=== PATIENT | male | born 1950 | race Caucasian/White ===

== ENCOUNTER 2025-02-06 10:11 | Outpatient (AMB) | payer MEDICARE, OTHER, SELFPAY ==
--- NOTE | 2025-02-06 10:20 | A.OFFVIS_ITS ---
Intake Visit Reasons: 3 month f/u Accompanied by: and daughter Allergies No Known Allergies Allergy (Verified 02/06/25 10:25) Medication List - Last Reconciled 02/06/25 by Genie Cruz CNP atorvastatin 20 mg PO BEDTIME carbidopa-levodopa 25-100 mg 1 tab PO QID 90 days donepezil 5 mg PO BEDTIME 90 days rasagiline 1 mg PO QAM 90 days triamterene-hydrochlorothiazid 37.5-25 mg 1 tab PO DAILY HPI Comments Details: He was here with his and daughter (Luana). Tremor was not bad, may be slightly more and worse with stress or anxiety, or when tired. No functional impairment. No difficulty eating, drinking, or swallowing. He was drooling more and was referred to speech and swallow therapy at [facility]. Sleep was okay, no movements in sleep. Walking 2-3 miles/day. His daughter noted that he was leaning more to the side. He has a few minor falls without injury. He felt he was moving a little slower. His Parkinsons exercise program finished and they were looking for program closer to home. Some difficulty getting up from chair, no trouble turning in bed. He feels his memory has gotten better with donepezil. No medication side effects. In the spring 2024, his daughter noted that he was more forgetful and confused at times, especially when tired. He has trouble following conversations, misplaces things, and has trouble remembering if he paid bills. Around 11/2020, he noted some intermittent tremor in his legs, left more than right. He also has noted that sometimes when he is standing or walking, he leans a little bit to the left side. Intermittently he gets a little tremor in his hand. His handwriting has become smaller and shaky. He had trouble getting out of a low chair or a low car. There's been no speech or swallowing problems. Occasionally he gets slight drooling. He is developed worsening of his stooped posture. For the last few years, he's been having shouting and kicking during his sleep suggestive of REM sleep behavior disorder about twice a week. [facility] Medical History (Updated 02/06/25 @ 10:24 by Genie Cruz CNP) Parkinson's disease with dyskinesia, without mention of fluctuations MCI (mild cognitive impairment) Hypertension Parkinson disease Review of Systems Const Denies chills, Denies daytime sleepiness, Denies difficulty sleeping, Denies fatigue, Denies fever(s), Denies frequent falls, Denies headache(s), Denies increased appetite, Denies poor appetite, Denies snoring, Denies weakness, Denies weight gain and Denies weight loss Eyes Denies loss of vision ENT Denies vertigo, Denies dizziness, Denies headache(s) and Denies neck pain Card Denies chest pain at rest, Denies chest pain with activity, Denies syncope, Denies leg edema, Denies palpitations, Denies dyspnea and Denies dyspnea on exertion Resp Denies cough, Denies dyspnea, Denies dyspnea on exertion and Denies snoring GI Denies abdominal pain, Denies constipation, Denies heartburn, Denies diarrhea and Denies nausea Denies urinary frequency, Denies urinary incontinence and Denies urinary urgency Musc Reports abnormal gait (balance difficulty), Denies back pain, Denies myalgias, Denies arthralgias, Denies neck pain, Denies numbness and Denies tingling Neuro Reports abnormal gait (balance difficulty), Denies vertigo, Denies dizziness, Denies syncope, Denies frequent falls, Denies headache(s), Denies lack of coordination, Denies loss of vision, Reports memory loss, Denies numbness, Denies Other visual disturbances, Denies restless legs, Denies seizure-like activity, Denies tingling, Denies paresthesias, Reports tremor(s) and Denies weakness Psych Denies anxiety, Denies depression, Denies auditory hallucinations, Reports memory loss and Denies visual hallucinations Endo Denies fatigue and Denies palpitations Physical Exam Const Other: General Appearance:? normal, in no acute distress. Heart:? S1, S2 normal, no murmurs. Lungs:? clear anteriorly and posteriorly. Musculoskeletal:? normal. Extremities:? no edema. Psych:? alert, as below. Neuro Other: Abnormal Neurological Findings:?Forward stooped posture and walks with no arm swing. He has reduced facial expression and blinking frequency. He has intermittent resting tremors of his feet, L > R, sometimes extending into the thighs had to 6-8 Hz frequency. He gets a slight intermittent tremor in his hands, left greater than right. Rapid alternating movements are somewhat diminished in amplitude and slower. Mild to mod cogwheel rigidity in his hands. Bradykinesia. MMSE 28/30.?? Mental Status: alert, as below. Cranial Nerves: Pupils are equal, round, and reactive to light. External ocular muscles are intact. Visual mcmillan are full, no ptosis. Face is symmetrical, no facial weakness or droop. Facial sensations are normal. Tongue protrudes in midline. Palate elevates symmetrically. Shoulder shrugging is normal Motor Examination: Normal muscle tone, bulk and strength. No atrophy or fascicul ations. No drift of the extended upper extremities. DTR 2+. Plantars are flexor. Sensory Exam: Normal light touch, temperature, pinprick, vibration, and joint- position sensations. Rhomberg sign is absent. Coordination: Rapid alternating movements as above. Gait Exam: As above. Cerebellar Signs: [id number] is okay. Extrapyramidal System: As above. Speech: Normal. MMSE Level of Consciousness: Alert. Orientation: Knows correct year, month, date, day and season. Knows correct city, county and state. Knows correct location and floor. Registration: Able to register 3 objects. Attention: Serial 7's performed accurately to 65. Recall: Able to recall 1 out of 3 objects. Language: Normal spontaneous speech, fluency, repetition, naming, comprehension, reading, and writing. Total Score: 28/30. Assessment & Plan Assessment & Plan (1) Parkinson disease: Code(s): G20.A1 - Parkinson's disease without dyskinesia, without mention of fluctuations Category: Medical Qualifiers: Dyskinesia presence: without dyskinesia Fluctuating manifestations: without fluctuating manifestations Qualified Code(s): G20.A1 - Parkinson's disease without dyskinesia, without mention of fluctuations Plan: Increase carbidopa-levodopa 25-100mg 1 tablet five times a day. Continue rasagiline mesylate 1mg 1 tablet daily. (2) MCI (mild cognitive impairment): Code(s): G31.84 - Mild cognitive impairment of uncertain or unknown etiology Category: Medical Plan: Continue donepezil 5mg 1 tablet at bedtime. Stay physically and socially active. Medications: New carbidopa-levodopa 25-100 mg (Sinemet) 1 tab PO .five times a day 450 tabs 1RF 90 days Discontinued carbidopa-levodopa 25-100 mg Discontinued Reason: Doctor's Order 1 tab PO QID 90 days 360 tabs 1RF Coding Level of Care Code Est Pt Level 4 (47120) Diagnoses Parkinson's disease without dyskinesia or fluctuating manifestations G20.A1 Dyskinesia presence: without dyskinesia Fluctuating manifestations: without fluctuating manifestations MCI (mild cognitive impairment) G31.84
--- OUTSIDE RECORDS SUMMARY | 2025-02-06 10:47 | XMS_ITS | Clinical Summary ---
[facility] Organization [facility] Address [address] [place] [address] Care Team Providers Care Senior Network Administrator Name Role Phone Unavailable Primary Care Provider Unavailabl e Social History Tobacco Use Types Packs/Day Years Used Date Smoking Tobacco: Never Assessed Sex and Gender Information Value Date Recorded Sex Assigned at Not on file Legal Sex Male 8:23 PM EST Gender Identity Not on file Sexual Orientation Not on file Plan of Treatment Health Maintenance Due Date Last Done Comments DTaP,Tdap,and Td Vaccines (1 - Tdap) 1969 Pneumococcal Vaccine: 50+ Years (1 of 1 - PCV) 2000 Zoster Vaccines (1 of 2) 2000 Abdominal Aortic Aneurysm (AAA) Screen 06/05/2022 Cholesterol Screening (Lipid Panel) 06/05/2022 Colorectal Cancer Screening: Colonoscopy 06/05/2022 Falls Risk Assessment 06/05/2022 Hepatitis C Screening 06/05/2022 Social Influencers of Health Screening 06/05/2022 COVID-19 Vaccine ( season) 2024 Medicare Annual Wellness Visit 03/14/2024 03/14/2023 Depression Screening 07/04/2024 Influenza Vaccine (#1) 2025 3, 04/12/2022, 03/28/2021, Additional history exists RSV Immunization Adult Patients (1 - 1-dose 75+ series) 2025 HIB Vaccines Aged Out No longer eligi ble based on patient's age to complete this topic HPV Vaccines Aged Out No longer eligi ble based on patient's age to complete this topic Hepatitis A Vaccines Aged Out No long er eligible based on patient's age to complete this topic Hepatitis B Vaccines Aged Out No long er eligible based on patient's age to complete this topic IPV Vaccines Aged Out No longer eligi ble based on patient's age to complete this topic MMR Vaccines Aged Out No longer eligi ble based on patient's age to complete this topic Meningococcal ACWY Vaccine Aged Out N o longer eligible based on patient's age to complete this topic Meningococcal B Vaccine Aged Out No l onger eligible based on patient's age to complete this topic RSV Immunization Patients Under 20 months Aged Out No longer eligible based on patient's age to complete this topic Varicella Vaccines Aged Out No longer eligible based on patient's age to complete this topic
== END 2025-02-06 11:35 | disposition home or self-care (01) ==
LOC: HO.HSM 10:11
PROVIDERS: PCP Internal Medicine; Referring Provider Internal Medicine; Visit Provider Registered Nurse
DX: G20.A1 Parkinson's disease without dyskinesia, without mention of fluctuations (principal); G31.84 Mild cognitive impairment of uncertain or unknown etiology
CPT/HCPCS: 99214

== ENCOUNTER → 2025-02-06 10:11 | Outpatient (BNVA) | payer MEDICARE, SELFPAY | PROVIDERS: PCP Internal Medicine; Referring Provider Internal Medicine; Visit Provider Registered Nurse | DX: G20.A1 Parkinson's disease without dyskinesia, without mention of fluctuations (principal); G31.84 Mild cognitive impairment of uncertain or unknown etiology | CPT/HCPCS: 99212 ==

== ENCOUNTER 2025-04-22 12:50 | Outpatient (REF) | payer MEDICARE, SELFPAY ==
--- NOTE | 2025-04-22 14:07 | EEG_ITS ---
Reason for Exam: Encephalopathy G93.40 Roomed Performed:?402 History: Parkinson's disease, hypertension, MCI - In spring 2024 patient's daughter noted that he was more forgetful and confused at times. He has trouble following conversations, misplacing things and has trouble remembering if he paid bills. Last Meal: today at 12:30 Medication: atorvastatin, carbidopa- levodopa, donepezil, rasagiline, triamterene- hydrochlorothiazid Technical description Photic stimulation: completed Hyperventilation:?omitted Behavioral state: cooperative State of Consciousness: awake and sleep Skull defect: none Sedation: none Handedness: right Duration of study:?32 min 20 sec Description: This is a 16 channel EEG with an EKG lead. Patient is reported awake during the tracing. Background EEG rhythm is 5-7 hertz 5-50 microvolt posteriorly and lower amplitude anteriorly with no obvious asymmetry or paroxysmal tendency. Photic stimulation does not produce any significant driving. Hyperventilation is is not performed.. No sharp waves, spikes, asymmetric activity, or paroxysmal activity noted. Cardiac lead does not reveal any significant abnormality. Impression: Moderate generalized slowing with no evidence of seizure disorder MTDD
== END 2025-04-22 12:51 | disposition home or self-care (01) ==
LOC: HO.NEURO 12:50
PROVIDERS: Visit Provider Registered Nurse
DX: G93.40 Encephalopathy, unspecified (principal); G20.A1 Parkinson's disease without dyskinesia, without mention of fluctuations; I10 Essential (primary) hypertension; G31.84 Mild cognitive impairment of uncertain or unknown etiology
CPT/HCPCS: 95819

== ENCOUNTER → 2025-04-22 14:07 | Outpatient (BNV) | payer MEDICARE, SELFPAY | PROVIDERS: Visit Provider Psychiatry & Neurology Neurology | DX: G93.40 Encephalopathy, unspecified (principal) | CPT/HCPCS: 95819 ==

== ENCOUNTER 2025-05-09 09:36 | Outpatient (AMB) | payer OTHER, SELFPAY ==
--- OUTSIDE RECORDS SUMMARY | 2024-03-19 04:00 | XMS_ITS ---
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 Name Role Phone Migration, Provider Unavailable Unavailable REASON FOR VISIT Follow-up Appt Encounters Encounter Location Date Provider Diagnosis [facility], [address] [address] 03/19/2024 Provider Migration Plan Of Treatment No Information Progress Notes * COY OWENSDOB:1950 ( 74 yo M)Acc No.[id number]:03/19/2024 Progress Notes Patient: COY LIM Provider: Ayana Gonzales :1950 A ge:73 Y S ex:Male Date:03/19/2024 [address] [place] Subjective: * Chief Complaints: * F ollow-up Appt * Ocular Surgical History: Objective: Vision Examination: * Electronic signature of Prov ider Migration on 05/09/2025 at 10:48 AM EST Sign off status: Pending * Provider: Ayana stewart Migration Date: 0 03/19/2024 Generated for Rosana chang/Brandin/eTransmitting on: 1 07/09/2024 10:48 AM EST
--- NOTE | 2025-05-09 09:39 | A.OFFVIS_ITS ---
Intake Visit Reasons: 3M PD/MCI Accompanied by: Family/Other Allergies No Known Allergies Allergy (Verified 05/09/25 09:41) Medication List - Last Reconciled 05/09/25 by Genie Cruz CNP atorvastatin 20 mg PO BEDTIME carbidopa-levodopa 25-100 mg (Sinemet) 1 tab PO .five times a day 90 days donepezil 5 mg PO BEDTIME 90 days rasagiline 1 mg PO QAM 90 days triamterene-hydrochlorothiazid 37.5-25 mg 1 tab PO DAILY HPI Comments Details: He was here with his and daughter (Luana). He had an episode in early 04/2025 where he was sitting at dinner table and suddenly did not feel well. He got up and took a few steps and started to fall, so his daughter lowered him to the ground. He was shaking more than usual and not responding for about 30 seconds. The tremors subsided. No increased confusion or fatigue. No tongue bite or incontinence. He went to the [facility] ER the following day and testing apparently came back okay, no records available for review. EEG was recommended, but he did not want to stay in hospital and testing was done outpat ient here a few weeks ago. No further episodes. Tremors were okay. He was taking carbidopa-levodopa 25-100mg 5x/day most days, occasionally missing dose. No functional impairment. No difficulty eating, drinking, or swallowing. He was walking 2-3 miles/day with cane and exercise program. He had some trouble getting up from chair or turning in bed. He was falling about 1x/month when he was not using cane. His daughter noted that his voice seemed softer. He was starting PT and speech therapy soon. He had COVID in 04/2025 treated with Paxlovid. Tremor may be slightly more with stress or anxiety, or when tired. Drooling more. Sleep was okay, no movements in sleep. [place] he was moving a little slower. Feels his memory has gotten better with donepezil. In the spring 2024, his daughter noted that he was more forgetful and confused at times, especially when tired. He has trouble following conversations, misplaces things, and has trouble remembering if he paid bills. Around 11/2020, he noted some intermittent tremor in his legs, left more than right. He also has noted that sometimes when he is standing or walking, he leans a little bit to the left side. Intermittently he gets a little tremor in his hand. His handwriting has become smaller and shaky. He had trouble getting out of a low chair or a low car. There's been no speech or swallowing problems. Occasionally he gets slight drooling. He is developed worsening of his stooped posture. For the last few years, he's been having shouting and kicking during his sleep suggestive of REM sleep behavior disorder about twice a week. [facility] Medical History (Updated 02/06/25 @ 10:24 by Genie Cruz, BRITT) Parkinson's disease with dyskinesia, without mention of fluctuations MCI (mild cognitive impairment) Hypertension Parkinson disease Review of Systems Const Denies chills, Denies daytime sleepiness, Denies difficulty sleeping, Denies fatigue, Denies fever(s), Denies frequent falls, Denies headache(s), Denies increased appetite, Denies poor appetite, Denies snoring, Denies weakness, Denies weight gain and Denies weight loss Eyes Denies loss of vision ENT Denies vertigo, Denies dizziness, Denies headache(s) and Denies neck pain Card Denies chest pain at rest, Denies chest pain with activity, Denies syncope, Denies leg edema, Denies palpitations, Denies dyspnea and Denies dyspnea on exertion Resp Denies cough, Denies dyspnea, Denies dyspnea on exertion and Denies snoring GI Denies abdominal pain, Denies constipation, Denies heartburn, Denies diarrhea and Denies nausea Denies urinary frequency, Denies urinary incontinence and Denies urinary urgency Musc Reports abnormal gait (balance difficulty), Denies back pain, Denies myalgias, Denies arthralgias, Denies neck pain, Denies numbness and Denies tingling Neuro Reports abnormal gait (balance difficulty), Denies vertigo, Denies dizziness, Denies syncope, Denies frequent falls, Denies headache(s), Denies lack of coordination, Denies loss of vision, Reports memory loss, Denies numbness, Denies Other visual disturbances, Denies restless legs, Denies seizure-like activity, Denies tingling, Denies paresthesias, Reports tremor(s) and Denies weakness Psych Denies anxiety, Denies depression, Denies auditory hallucinations, Reports memory loss and Denies visual hallucinations Endo Denies fatigue and Denies palpitations Physical Exam Const Other: General Appearance:? normal, in no acute distress. Heart:? S1, S2 normal, no murmurs. Lungs:? clear anteriorly and posteriorly. Musculoskeletal:? normal. Extremities:? no edema. Psych:? alert, as below. Neuro Other: Abnormal Neurological Findings:?Forward stooped posture and walks with no arm swing. He has reduced facial expression and blinking frequency. He has intermittent resting tremors of his feet, L > R, sometimes extending into the thighs had to 6-8 Hz frequency. He gets a slight intermittent tremor in his hand s, left greater than right. Rapid alternating movements are somewhat diminished in amplitude and slower. Mild to mod cogwheel rigidity in his hands. Bradykinesia. MMSE 28/30.?? Mental Status: alert, as below. Cranial Nerves: Pupils are equal, round, and reactive to light. External ocular muscles are intact. Visual mcmillan are full, no ptosis. Face is symmetrical, no facial weakness or droop. Facial sensations are normal. Tongue protrudes in midline. Palate elevates symmetrically. Shoulder shrugging is normal Motor Examination: Normal muscle tone, bulk and strength. No atrophy or fasciculations. No drift of the extended upper extremities. DTR 2+. Plantars are flexor. Sensory Exam: Normal light touch, temperature, pinprick, vibration, and joint- position sensations. Rhomberg sign is absent. Coordination: Rapid alternating movements as above. Gait Exam: As above. Cerebellar Signs: [id number]-[id number] is okay. Extrapyramidal System: As above. Speech: Normal. MMSE Level of Consciousness: Alert. Orientation: Knows correct year, month, date, day and season. Knows correct city, county and state. Knows correct location and floor. Registration: Able to register 3 objects. Attention: Serial 7's performed accurately to 65. Recall: Able to recall 1 out of 3 objects. Language: Normal spontaneous speech, fluency, repetition, naming, comprehension, reading, and writing. Total Score: 28/30. Results Reviewed Results Reviewed: [address] [address] Electroencephalogram Report Signed Patient: Alexis Casas MR#: [id number] : 1950 Acct:[id number] Age/Sex: 74 / M ADM Date: 04/22/25 Loc: HO.NEURO Attending Dr: Genie Cruz CNP Ordering Physician: Genie Cruz CNP Date of Service: 04/22/25 Procedure(s): EEG Routine Accession Number(s): [id number] cc: ~ Reason for Exam: G93.40 - Encephalopathy, unspecified Reason for Exam: Encephalopathy G93.40 Roomed Performed:?402 History: Parkinson's disease, hypertension, MCI - In spring 2024 patient's daughter noted that he was more forgetful and confused at times. He has trouble following conversations, misplacing things and has trouble remembering if he paid bills. Last Meal: today at 12:30 Medication: atorvastatin, carbidopa- levodopa, donepezil, rasagiline, t riamterene- hydrochlorothiazid Technical description Photic stimulation: completed Hyperventilation:?omitted Behavioral state: cooperative State of Consciousness: awake and sleep Skull defect: none Sedation: none Handedness: right Duration of study:?32 min 20 sec Description: This is a 16 channel EEG with an EKG lead. Patient is reported awake during the tracing. Background EEG rhythm is 5-7 hertz 5-50 microvolt posteriorly and lower amplitude anteriorly with no obvious asymmetry or paroxysmal tendency. Photic stimulation does not produce any significant driving. Hyperventilation is is not performed.. No sharp waves, spikes, asymmetric activity, or paroxysmal activity noted. Cardiac lead does not reveal any significant abnormality. Impression: Moderate generalized slowing with no evidence of seizure disorder Dictated By: Ryan Valencia MD Signed By: <Electronically signed by Ryan Valencia MD> 04/22/25 5075 Assessment & Plan Assessment & Plan (1) Parkinson disease: Code(s): G20.A1 - Parkinson's disease without dyskinesia, without mention of fluctuations Category: Medical Plan: Continue carbidopa-levodopa 25-100mg 1 tablet five times a day. Continue rasagiline mesylate 1mg 1 tablet daily. He did not have cane with him today. Stay physically active, use cane regularly for additional support. (2) MCI (mild cognitive impairment): Code(s): G31.84 - Mild cognitive impairment of uncertain or unknown etiology Category: Medical Plan: Continue donepezil 5mg 1 tablet at bedtime. Stay physically and socially active. Coding Level of Care Code Est Pt Level 4 (32918) Diagnoses Parkinson disease G20.A1 MCI (mild cognitive impairment) G31.84
--- OUTSIDE RECORDS SUMMARY | 2025-05-09 10:48 | XMS_ITS | Clinical Summary ---
Author Organization [facility] Address [address] [place] [address] [place] [phone] Phone Care Team Providers Care Pharmacist Per Diem Name Role Phone Samara Vargas Primary Care Provider [phone] Encounters Date Type Department Care Team Description 02/28/2025 Transcribe Orders [facility] [address] [place] [address] Samara Vargas PA Encounter for rehabilitation (Primary Dx) 02/26/2025 Transcribe Orders [facility] [address] [place] [address] Samara Vargas PA Encounter for rehabilitation (Primary Dx) 02/22/2025 Transcribe Orders [facility] [address] [place] [address] Samara Vargas PA Encounter for rehabilitation (Primary Dx) from Last 3 Months Social History Tobacco Use Types Packs/Day Years Used Date Smoking Tobacco: Never Assessed Education Answer Date Recorded Are you interested in more education? Not on jay e 03/08/2025 Are you concerned about learning? Not on file 03/08/2025 No 03/08/2025 No 03/08/2025 Digital Access Answer Date Recorded No 03/08/2025 No 03/08/2025 Reliable internet access at home? Not on file 03/08/2025 Device with a working camera? Not on file Sex and Gender Information Value Date Recorded Sex Assigned at Not on file Legal Sex Male 11:02 AM EDT Gender Identity Not on file Sexual Orientation Not on file Plan of Treatment Upcoming Encounters Date Type Department Care Team (Late st Contact Info) Description 06/05/2025 11:00 AM EST Office Visit [address] [address] Samara Vargas PA [address] [place] [phone] [email or web address], PT [address] [place] [address] 06/12/2025 11:00 AM EST Office Visit [address] [address] Samara Vargas PA [address] [place] [phone] negro@[email or web address] Pati Tony, PT [address] [place] [address] 06/18/2025 12:00 PM EST Office Visit [address] [address] Samara Vargas PA [address] [place] [phone] negro@[email or web address] Pati Tony, PT [address] [place] [address] 07/10/2025 11:00 AM EST Office Visit [address] [address] Samara Vargas PA [address] [place] [phone] negro@[email or web address] Pati Tony, PT [address] [place] [address] 07/17/2025 11:00 AM EST Office Visit [address] [place] [address] Samara Vargas PA [address] [place] [address] negro@[email or web address] Pati Tony, PT [address] [place] [address] 07/24/2025 11:00 AM EST Office Visit [address] [address] Samara Vargas PA [address] [place] [address] negro@[email or web address] Tony, PT [address] [place] [address] 07/31/2025 11:00 AM EST Office Visit [address] [address] Samara Vargas PA [address] [place] [address] negro@[email or web address] Tony, PT [address] [place] [address] 08/07/2025 11:00 AM EST Office Visit [address] [address] Samara Vargas PA [address] [place] [address] negro@[email or web address] Pati Tony, PT [address] [place] [address] 08/08/2025 1:30 PM EST Office Visit [address] [address] Samara Vargas PA [address] [place] [address] [email or web address] Deborah [email or web address] [address] [address] [email or web address] 08/15/2025 1:30 PM EST Office Visit [address] [address] Samara Vargas, PA [address] [place] [address] negro@[email or web address] Debroah [email or web address] [address] [address] [email or web address] 08/22/2025 1:30 PM EST Office Visit [address] [address] Samara Vargas, BEVERYL [address] [place] [address] negro@[email or web address] Deborah [email or web address] [address] [address] [email or web address] 08/29/2025 1:30 PM EST Office Visit [address] [address] Samara Vargas, BEVERLY [address] [place] [id number] negro@[email or web address] Deborah [email or web address] [address] [address] [email or web address] 09/05/2025 1:30 PM EST Office Visit [address] [address] SouSamara craft PA [address] [place] [address] negro@[email or web address] Deborah [email or web address] [address] [address] [email or web address] 09/12/2025 1:30 PM EDT Office Visit [address] [address] Samara Vargas, BEVERLY [address] [place] [address] negro@[email or web address] Deborah [email or web address] [address] [address] [email or web address] 09/19/2025 1:30 PM EDT Office Visit [address] [address] Samara Vargas, BEVERLY [address] [place] [address] negro@[email or web address] Deborah [email or web address] [address] [address] [email or web address] 09/26/2025 1:30 PM EDT Office Visit [address] [address] Samara Vargas, BEVERLY [address] [place] [address] negro@[email or web address] Deborah Mccauley [address] [address] [email or web address] 10/03/2025 1:30 PM EDT Office Visit [address] [address] Samara Vargas, BEVERLY [address] [place] [address] negro@[email or web address] Deborah [email or web address] [address] [address] [email or web address] 10/10/2025 1:30 PM EDT Office Visit [address] [address] Samara Vargas, BEVERLY [address] [place] [address] negro@[email or web address] Deborah [email or web address] [address] [address] [email or web address] 10/17/2025 1:30 PM EDT Office Visit [address] [address] Samara Vargas, BEVERLY [address] [place] [address] negro@[email or web address] Deborah [email or web address] [address] [address] [email or web address] 10/24/2025 1:30 PM EDT Office Visit [address] [address] Samara Vargas, BEVERLY [address] [place] [address] [email or web address] Deborah [email or web address] [address] [address] [email or web address] Health Maintenance Due Date Last Done Comments Adult Td,Tdap Booster 1950 LIPID PANEL 1950 DEPRESSION SCREENING 1962 SMOKING Hx and SMOKELESS TOB ACCO SCREENING 10/29/1963 HEPATITIS C SCREENING 1968 COLOGUARD 10/29/1995 COLONOSCOPY 10/29/1995 COLORECTAL CANCER SCREENING 10/29/1995 FIT TEST 10/29/1995 FOBT 10/29/1995 SIGMOIDOSCOPY 10/29/1995 VIRTUAL COLONOSCOPY 10/29/1995 PNEUMOCOCCAL VACCINES (50+ y ears) (1 of 1 - PCV) 2000 ZOSTER VACCINES (1 of 2) 2000 INFLUENZA VACCINE (#1) 2025 COVID-19 VACCINE (1 - 2024-2 6 season) 2025 RSV VACCINE (1 - 1-dose 75+ series) 2025 HEPATITIS A VACCINES Aged Out No long er eligible based on patient's age to complete this topic HIB VACCINES Aged Out No longer eligi ble based on patient's age to complete this topic MENINGOCOCCAL VACCINES (ACWY) Aged Out No longer eligible based on patient's age to complete this topic MENINGOCOCCAL VACCINES (B) Aged Out N o longer eligible based on patient's age to complete this topic Medical Devices Not on file Insurance MEDICARE PART A & B [facility] MEDICARE SUPPLEMENT MEDICARE PART A & B MEDICARE SUPPLEMENT MEDICARE PART A & B MEDICARE SUPPLEMENT MEDICARE PART A & B MEDICARE SUPPLEMENT MEDICARE PART A & B MEDICARE SUPPLEMENT MEDICARE PART A & B [facility] MEDICARE SUPPLEMENT Care Teams Pharmacist Per Diem Relationship Specialty Start Date End Date Samara Vargas PA [address] [place] [phone] [email or web address] PCP - General Physician Trip Rider 02/20/25 Additional Source Comments The information contained in this document represents components of the legal health record. It is not the complete legal health record.[facility]
--- OUTSIDE RECORDS SUMMARY | 2025-05-09 10:48 | XMS_ITS | Patient Health Record ---
Author Organization [facility] [place] Address [address] [facility] [address] [place] [address] Care Team Providers Care Senior Search Marketing Analyst Name Role Phone Migration, Provider Unavailable Unavailable Reason For Referral No Information Plan Of Treatment No Information Insurance Providers Payer Name Payer Address Payer Phone Subscriber Number Group Number Insured Name Patient Relationship to Insured Coverage Start Date Coverage End Date A [employer] [address] [facility] [place] [phone] [id number] COY OWENS Self - patient is the insured [facility] Options [address] [place] [id number] COY OWENS Self - patient is the insured
--- OUTSIDE RECORDS SUMMARY | 2025-05-09 10:48 | XMS_ITS | Clinical Summary ---
Author Organization [facility] Address [address] [place] [address] Care Team Providers Care Traffic Police Officer Name Role Phone Unavailable Primary Care Provider Unavailabl e Social History Tobacco Use Types Packs/Day Years Used Date Smoking Tobacco: Never Assessed Sex and Gender Information Value Date Recorded Sex Assigned at Not on file Legal Sex Male 8:23 PM EST Gender Identity Not on file Sexual Orientation Not on file Plan of Treatment Health Maintenance Due Date Last Done Comments Colorectal Cancer Screening: Colonoscopy 1950 DTaP,Tdap,and Td Vaccines (1 - Tdap) 1969 Pneumococcal Vaccine: 50+ Years (1 of 1 - PCV) 2000 Zoster Vaccines (1 of 2) 2000 Abdominal Aortic Aneurysm (AAA) Screen 06/05/2022 Cholesterol Screening (Lipid Panel) 06/05/2022 Falls Risk Assessment 06/05/2022 Hepatitis C Screening 06/05/2022 Social Influencers of Health Screening 06/05/2022 Medicare Annual Wellness Visit 03/14/2024 03/14/2023 Depression Screening 07/04/2024 COVID-19 Vaccine ( - 2023- season) 2025 Influenza Vaccine (#1) 2025 3, 04/12/2022, 03/28/2021, [...]
== END 2025-05-09 10:13 | disposition home or self-care (01) ==
LOC: HO.HSM 09:36
PROVIDERS: PCP Internal Medicine; Visit Provider Registered Nurse
DX: G20.A1 Parkinson's disease without dyskinesia, without mention of fluctuations (principal); G31.84 Mild cognitive impairment of uncertain or unknown etiology
CPT/HCPCS: 99214